=== PATIENT | female | born 1985 | race Caucasian/White ===

== ENCOUNTER 2016-07-02 10:24 | Emergency (ER) | payer SELFPAY ==
[~2016-07-02] VITALS: Ht 157.5 cm; Wt 72.7 kg
[~2016-07-02 10:24] MED LIST: ALBU18HF INH
[2016-07-02 10:27] VITALS: BP 138/87; PULSE 102; RESP 18; O2SAT 96
--- NOTE | 2016-07-02 10:36 | ED.REPORT ---
HPI-General Illness Date of Service Jul 02, 2016 ED Provider: Dr. Davis Pt is a 30 year old female with a history of asthma who presents to the ED with complaints of flu like symptoms. She reports fevers, chills, body aches, nausea , vomiting, diarrhea, cough and a sore throat onset 2 days ago. Pt states that she had her flu shot this year. Pt reports no other complaints. Nursing Notes Stated Complaint: FEVER,BREATHING ISSUES,VOMIT,DIARRHEA Chief Complaint: FLU/Cold Symptoms Nursing Notes Reviewed: Yes Allergies: Coded Allergies: venom-honey bee (Verified Allergy, Unknown, 02/01/16) Scheduled Albuterol HFA (Proair HFA) 8.5 Gm Hfa.aer.ad 2 PUFFS INHALATION Q4H Oseltamivir Phosphate (Tamiflu) 75 Mg Capsule 75 MG PO BID Scheduled PRN Albuterol Sulfate (Ventolin HFA Inhaler) 200 Puff/18 Gm Inhaler 2 PUFF INH Q6 PRN PRN For Wheezing Naproxen (Naproxen) 500 Mg Tab 500 MG PO BID PRN PRN For Pain Ondansetron ODT (Zofran ODT) 4 Mg Tablet 4 MG PO Q4H PRN PRN For Nausea General Time Seen by MD: 10:35 Chief Complaint Not feeling well Hx Obtained From: Patient Arrived By: Walk-in Sudden in Onset?: Yes Onset Occurred: 2 days ago Symptom Duration: Since onset Location: : Head Quality: Painful Severity: Current: Mild Severity: Maximum: Mild Similar Sx Previous: Yes Past Medical History Past Medical History Notes: PCP: Dr. Mclaughlin Past Medical History heart murmur IBS Reports: Asthma, Hypertension Past Surgical History Lithrotripsy, renal stent Reports: Appendectomy, Cholecystectomy Family History Mom alive: diabetes Dad alive: diabetes Grandfather: PE Smoking History Current Every Day Smoker Social History Alcohol Use: "Social" Drug Use: Denies drug use Other Social History: Good social support, , Local resident Ambulatory Status Independent Review of Systems Full Review of Systems Constitutional: Reports: Chills, Fever, Weakness - generalized, Denies: Malaise Respiratory: Reports: Non-productive cough, Shortness of breath, Denies: Wheezing GI: Reports: Abdominal pain, Diarrhea, Nausea, Vomiting Female: Denies: Dysuria, Flank pain, Urinary frequency, Urinary urgency Musculoskeletal: Denies: Back pain, Extremity pain, Neck pain Skin: Denies Diaphoresis Neurologic: Denies: Abnormal movement, Change LOC, Dizziness, Headache, Syncope , Weakness Complete sys rev & neg: except as marked. Physical Exam Vital Signs Vital Signs Date Time Temp Pulse Resp B/P Pulse Ox O2 Delivery O2 Flow Rate FiO2 07/02/16 11:14 94 18 98 Room Air 07/02/16 10:27 36.3 102 18 138/87 96 Initial VS: Reviewed Head / Eyes: Atraumatic, Normocephalic, PERRL ENT: Mucous membranes moist, Conjunctiva normal, No scleral icterus Cardiovascular: Regular rate & rhythm, Heart sounds normal, Intact distal pulses Abdomen / GI: Soft, Non-tender, No guarding, No rebound, No distention Skin: Warm, Dry, No cyanosis Neurologic: Alert, Oriented, Nonfocal Psychiatric: Mood/affect normal, Behavior normal, Normal thought content Neck: Atraumatic, Supple Mild anterior cervical adenopathy Respiratory / Chest: Atraumatic, No respiratory distress Expiratory wheezes Rhonchi Interpretation & Diagnostics X-Ray Chest Interpretation Chest Xray Interpretation: IMPRESSION: No acute cardiopulmonary disease. Dictated by: Diogenes Sears M.D. on 07/02/2016 at 11:09 Interpretation / Wet Read by: Interpret - Radiologist Re-Eval/Medical Decision Med Decision/Clinical Course Positive influenza otherwise well-appearing. Discharged with Tamiflu and other supportive measures. Return precautions given Source of Hx: Old records Time of Eval: 11:07 Re-Evaluation/Progress Note: Pt is rechecked and informed of her labs and imaging results and the plan to discharge her at this time. She understands and agrees, all questions are addressed. Counseled Regarding: Diagnosis, Lab results, Need for follow-up, When/why to return to ED Discharge & Departure Primary Impression: Influenza A Disposition: Home Discharge Condition All VS Reviewed: Yes Condition: Stable Patient Instructions: Influenza (ED) Additional Instructions: Take Tamiflu, naproxen, and Zofran as prescribed. Follow-up with regular doctor or return to the ER as needed. Referrals: River Mclaughlin PA-C (PCP) Scribe Attestation Portions of this note were transcribed by Arleth Zarate. I, Dr. Davis personally performed the history, physical exam and medical decision-making; I reviewed and confirmed the accuracy of the information in the transcribed note. Signed by: Bhavna Geiger, 07/02/2016 11:08 copies to: River Mclaughlin PA-C, Timothy S DO Jul 02, 2016 10:36 CHRIS ZARATE Jul 02, 2016 10:45
[2016-07-02] MEDS ORDERED: Albuterol 2.5 mg/3 mL Inhalation Solution NEB ONE (10:45)
[2016-07-02] MEDS ORDERED: Albuterol-Ipratropium 3 mL Inhalation Solution NEB ONE (10:45)
[2016-07-02] MEDS ORDERED: Ondansetron 8 mg ODT Tablet PO ONE (11:10)
[2016-07-02] MEDS ORDERED: ONDA4TAB9 PO (11:11)
[2016-07-02] MEDS ORDERED: ALBU8.5H2 INHALATION (11:11)
[2016-07-02] MEDS ORDERED: NPR500T PO (11:11)
[2016-07-02] MEDS ORDERED: TAM75UDCAP PO (11:11)
--- NOTE | 2016-07-02 11:11 | DRSVH ---
PROCEDURE: X-RAY CHEST, TWO VIEWS ([id number]) INDICATIONS: 30 year-old female with productive cough and fever for 2-3 days. TECHNIQUE: 2 views of the chest were acquired. COMPARISON: [facility], CR, XR CHEST 2VW, 01/27/2015, 19:08. [facility], CR, CHEST 1VW (PORTABLE), 06/08/2014, 8:44. [facility], CR, CHEST 2VW, 05/18/2014, 21:07. FINDINGS: Surgical changes and devices: Patient is status post cholecystectomy. Lungs and pleura: No pleural effusions or pneumothorax. Lungs are clear. Mediastinum: Mediastinal contours are normal. Heart size is normal. Bones and chest wall: No suspicious bony abnormalities. Soft tissues appear unremarkable. IMPRESSION: No acute cardiopulmonary disease. Dictated by: Diogenes Sears M.D. on 07/02/2016 at 11:09 Approved by: Diogenes Sears M.D. on 07/02/2016 at 11:09
[2016-07-02 11:14] VITALS: PULSE 94; RESP 18; O2SAT 98
[2016-07-02 11:33] VITALS: BP 129/74; PULSE 97; RESP 18; O2SAT 98
[2016-07-02 11:39] VITALS: BP 129/74; PULSE 97; RESP 18; O2SAT 98
== END 2016-07-02 11:41 | disposition home or self-care (01) ==
LOC: SED 10:24
DX: J10.1 Influenza due to other identified influenza virus with other respiratory manifestations (principal); R11.2 Nausea with vomiting, unspecified; R19.7 Diarrhea, unspecified; J45.909 Unspecified asthma, uncomplicated; I10 Essential (primary) hypertension; F17.200 Nicotine dependence, unspecified, uncomplicated; Z91.030 Bee allergy status
CPT/HCPCS: 71020; 87804; 94640; 94664; 99284; J7613; J7620

== ENCOUNTER 2016-08-21 05:02 | Emergency (ER) | payer OTHER ==
[~2016-08-21] VITALS: Ht 157.5 cm; Wt 72.3 kg
[~2016-08-21 05:02] MED LIST changes: +ALBU8.5H2 INHALATION; +NPR500T PO; +ONDA4TAB9 PO; +TAM75UDCAP PO
[2016-08-21 05:05] VITALS: BP 133/78; PULSE 113; RESP 16; O2SAT 98
--- NOTE | 2016-08-21 05:36 | ED.REPORT ---
HPI-Back Pain Under 40 Date of Service Aug 21, 2016 ED Provider: Demetrius La MD A 30 year old female with a medical history including IBS and hypertension presents to the ED with spinal lumbar pain onset 19:30 last night while lifting at work. The patient heard a "ping" at onset. She also reports left leg paresthesia and weakness. The patient denies urinary or bowel incontinence. She has never had similar symptoms. Nursing Notes Stated Complaint: LOW BACK PAIN Chief Complaint: Back Pain or Injury Nursing Notes Reviewed: Yes Allergies: Coded Allergies: venom-honey bee (Verified Allergy, Unknown, 08/21/16) Scheduled Albuterol HFA (Proair HFA) 8.5 Gm Hfa.aer.ad 2 PUFFS INHALATION Q4H Oseltamivir Phosphate (Tamiflu) 75 Mg Capsule 75 MG PO BID Scheduled PRN Albuterol Sulfate (Ventolin HFA Inhaler) 200 Puff/18 Gm Inhaler 2 PUFF INH Q6 PRN PRN For Wheezing Hydrocodone-Acetaminophen 5-325 mg (Hydrocodone-Acetaminophen 5-325 mg) 1 Each Tablet 1-2 TABLET PO Q4H PRN PRN For Pain Ibuprofen (Ibuprofen) 600 Mg Tablet 600 MG PO QID PRN PRN For Pain Methocarbamol (Robaxin-750) 750 Mg Tablet 1,500 MG PO QID PRN PRN For Severe Pain Naproxen (Naproxen) 500 Mg Tab 500 MG PO BID PRN PRN For Pain Ondansetron ODT (Zofran ODT) 4 Mg Tablet 4 MG PO Q4H PRN PRN For Nausea General Time Seen by MD: 05:25 Chief Complaint Lumbar pain Hx Obtained From: Patient Arrived By: Walk-in Sudden in Onset?: Yes Onset Occurred: 9 - 12 hours ago Symptom Duration: Since onset Caused by: Lifting Location: : Spinal lumbar area Quality: Painful Severity: Current: Moderate Severity: Maximum: Moderate Associated with: Reports: Tingling left lower ext, Tingling right lower ext, Weakness both lower ext, Denies: Fever, Incontinence bladder, Incontinence bowel Pertinent Negative: Relieved by nothing Recent Healthcare: No recent doctor visit Similar Sx Previous: No Past Medical History Past Medical History Notes: PCP: Dr. Mclaughlin Past Medical History heart murmur IBS Reports: Asthma, Hypertension Past Surgical History Lithrotripsy, renal stent Reports: Appendectomy, Cholecystectomy Family History Mom alive: diabetes Dad alive: diabetes Grandfather: PE Smoking History Current Every Day Smoker Social History Alcohol Use: "Social" Drug Use: Denies drug use Other Social History: Good social support, , Local resident Ambulatory Status Independent Review of Systems Review of Systems Note: + Left leg paresthesia Constitutional: Denies: Fever Respiratory: Denies: Non-productive cough, Shortness of breath GI: Denies: Vomiting Musculoskeletal: Reports: Back pain (Lumbar spine) Neurologic: Reports: Focal weakness (Left leg), Denies: Bladder dysfunction, Bowel dysfunction Complete sys rev & neg: except as marked. Physical Exam Initial Vital Signs Vital Signs (First) Date Time Temp Pulse Resp B/P Pulse Ox O2 Delivery O2 Flow Rate FiO2 08/21/16 05:05 36.2 113 16 133/78 98 Room Air 08/21/16 05:43 3 Head / Eyes: Atraumatic, Normocephalic ENT: Conjunctiva normal, No scleral icterus Neck: Supple, Full range of motion Skin: Warm, Dry, No cyanosis Psychiatric: Mood/affect normal, Behavior normal, Normal thought content General/Constitutional: Awake, Alert, No acute distress Back: Atraumatic Flank / Spine / Paraspinal: Positive: Lumbar paraspinal tend..., Lumbar spine tender... Neurologic: Oriented X3, Speech NL, CN II - XII intact Focal Weakness: Positive: Lower extremity L (Subjective) Sensory Deficit: Positive: Lower extremity L (Subjective) Interpretation & Diagnostics X-Ray Interpretation Xray Interpretation: Normal exam Study Performed: LUMBAR SPINE 2 or 3 view Interpretation / Wet Read by: Wet read ED physician Re-Eval/Medical Decision Med Decision/Clinical Course 22-year-old female presents with acute onset left sciatica after a lifting injury at work. This is likely to resolve with rest and meds, but needs follow-up with her PCP and potentially MRI looking for acute disc disease if not resolving. Home with Robaxin, Vicodin, ibuprofen, and received a single dose of Decadron here. Source of Hx: Old records Re-Evaluation/Progress : Time of Eval: 06:00 Patient Status: Condition improved Re-Evaluation/Progress Note: Discussed with patient x-ray results, diagnosis, and plan for discharge. Follow-up and return to the ER instructions given. Patient agrees with plan for care and all questions were addressed. Counseled Regarding: Diagnosis, Need for follow-up, When/why to return to ED Discharge & Departure Shift Change Sign-Out Response to Therapy: Improved Impression: Primary Impression: Lumbosacral strain Encounter type: initial encounter Qualified Code: S39.012A - Strain of muscle, fascia and tendon of lower back, initial encounter Additional Impression: Sciatica of left side All VS Reviewed: Yes Condition: Improved Patient Instructions: Low Back Strain (ED), Sciatica (ED) Additional Instructions: Apply heat to the area. Rest as much as possible. No bending, no lifting, no prolonged sitting. Use a back roll whenever you do sit to maintain posture. Ibuprofen 600 mg four times daily. Robaxin two tablets four times daily. Vicodin if needed four times daily. Call your doctor today for follow-up in the next few days. If your pain is not improving, you may need further evaluation from your doctor, to direct further studies if needed. Referrals: River Mclaughlin PA-C (PCP) Scribe Attestation Portions of this note were transcribed by Leslye Michaud. I, Dr. La, personally performed the history, physical exam, and medical decision-making; I reviewed and confirmed the accuracy of the information in the transcribed note. Signed by: Bhavna Luna, 08/21/2016, 06:35 copies to: River Mclaughlin PA-C, Christopher W MD Aug 21, 2016 05:36 LESLYE MICHAUD Aug 21, 2016 05:46
[2016-08-21 05:43] VITALS: PULSE 102; RESP 20; O2SAT 96
[2016-08-21] MEDS ORDERED: HYDROcodone-APAP 5-325 mg Tablet PO ONE (05:45)
[2016-08-21] MEDS ORDERED: Dexamethasone 20 mg/2 mL Oral Solution PO ONE (05:45)
[2016-08-21] MEDS ORDERED: Ketorolac 30 mg/mL 2 mL Inj IM ONE (05:45)
[2016-08-21] MEDS ORDERED: IBUP-1827 PO (05:50)
[2016-08-21] MEDS ORDERED: HYDR-4003 PO (05:50)
[2016-08-21] MEDS ORDERED: METH-313 PO (05:50)
[2016-08-21 06:39] VITALS: BP 102/68; PULSE 88; RESP 16; O2SAT 98
--- NOTE | 2016-08-21 09:31 | DRSVH ---
PROCEDURE: X-RAY LUMBAR SPINE, 2 OR 3 VIEW INDICATIONS: pulled back at work, midline pain and l. sciatica TECHNIQUE: 3 views of the lumbar spine were acquired. COMPARISON: None. FINDINGS: Bones: 5 [id number] vertebrae are present. There is normal bony alignment. No vertebral body c ompression fractures. No suspicious bony lesions. Soft tissues: Overlying bowel gas pattern is normal. No suspicious soft tissue calcifications. Cho lecystectomy and tubal ligation clips present. IMPRESSION: Normal L-spine. Dictated by: Frederick Ruiz [facility] Interpreted: Carole Gonzales MD on 08/21/2016 at 9:29 Transcribed by: GERALD on 08/21/2016 at 9:30 Approved by: Carole Gonzales M.D. on 08/21/2016 at 16:40
== END 2016-08-21 05:50 | disposition home or self-care (01) ==
LOC: SED 05:02
DX: S39.012A Strain of muscle, fascia and tendon of lower back, initial encounter (principal); M54.32 Sciatica, left side; X58.XXXA Exposure to other specified factors, initial encounter; X50.9XXA Other and unspecified overexertion or strenuous movements or postures, initial encounter; Y93.89 Activity, other specified; Y99.0 Civilian activity done for income or pay; Y92.69 Other specified industrial and construction area as the place of occurrence of the external cause; I10 Essential (primary) hypertension; J45.909 Unspecified asthma, uncomplicated; F17.200 Nicotine dependence, unspecified, uncomplicated; Z79.51 Long term (current) use of inhaled steroids
CPT/HCPCS: 72100; 96372; 99284; J1885